=== PATIENT | female | born 1960 | race Caucasian/White ===

== ENCOUNTER 2019-06-13 18:27 | Emergency (ER) | payer MEDICARE ==
[~2019-06-13] VITALS: Ht 170.2 cm; Wt 52.3 kg
[2019-06-13 18:32] VITALS: Ht 170.2 cm; Wt 52.3 kg
[2019-06-13] MEDS ORDERED: KEFLEX500 MG PO (19:03)
[2019-06-13] MEDS ORDERED: OMEPRAZOLE20 M1 PO (19:04)
[2019-06-13] MEDS ORDERED: CYCLOBENZAPRINE10 MG PO (19:04)
[2019-06-13] MEDS ORDERED: FUROSEMIDE40 MG PO (19:04)
[2019-06-13] MEDS ORDERED: K-TAB10 MEQ (19:05)
[2019-06-13] MEDS ORDERED: SPIRIVA18 MCG INH (19:06)
[2019-06-13] MEDS ORDERED: COLACE100 MG PO (19:06)
[2019-06-13 19:07] LABS: BASOPHILS 0.2 % (0-2); EOSINOPHILS 0.6 % (0-7); HEMATOCRIT 38.9 % (36.0-48.0); HEMOGLOBIN 11.7 g/dL (12-16); IMMATURE GRANULOCYTES 0.3 % (0-5); LYMPHOCYTES 8.5 % (15-50); MCH 26.2 pg (26.0-34.0); MCHC 30.1 g/dL (31.0-37.0); MEAN PLATELET VOLUME 9.3 fL (7.4-10.4); MONOCYTES 9.7 % (2-11); NEUTROPHILS 80.7 % (40-80); PLATELET COUNT 234 10x3/uL (130-400); RBC 4.47 10x6/uL (4.00-5.40); RDW 16.2 % (11.5-14.5); WBC 11.3 10x3/uL (4.8-10.8)
[2019-06-13] MEDS ORDERED: HYDROCODON-ACE1 EA10 PO (19:07)
[2019-06-13 19:14] LABS: INR 1.18 (0.85-1.17); PROTIME 14.5 SECONDS (11.6-15.0)
[2019-06-13 19:15] LABS: APTT 37.8 SECONDS (22.8-39.4)
[2019-06-13 19:37] LABS: ALBUMIN 2.5 g/dL (3.4-5.0); ALKALINE PHOSPHATASE 94 U/L (46-116); ALT (SGPT) 26 U/L (10-68); BILIRUBIN - TOTAL 0.25 mg/dL (0.2-1.3); CALC OSMOLALITY 264 mosm/kg (275-300); CALCIUM 7.8 mg/dL (8.5-10.1); CHLORIDE - SERUM 94 mmol/L (98-107); CKMB 2.5 U/L (0.0-3.6); CREATINE KINASE 56 UL (21-215); CREATININE - SERUM 0.3 mg/dL (0.6-1.3); GLUCOSE 107 mg/dL (74-106); POTASSIUM - SERUM 4.1 mmol/L (3.5-5.1); PRO BNP 4919 pg/mL (0-125); PROTEIN - SERUM 5.5 g/dL (6.4-8.2); SODIUM 132 mmol/L (136-145); UREA NITROGEN 13 mg/dL (7-18); eGFR NON AFRICAN AMERICAN > 90 mL/min (90-120)
[2019-06-13 19:39] LABS: CARBON DIOXIDE 41.9 mmol/L (21.0-32.0); TROPONIN-I < 0.017 ng/mL (0.000-0.060)
[2019-06-13 22:58] VITALS: BP 121/64
== END 2019-06-13 22:58 | disposition other institution (70) ==
LOC: D.ER 18:27
PROVIDERS: Emergency Medicine
DX: I50.9 Heart failure, unspecified (principal); J44.1 Chronic obstructive pulmonary disease with (acute) exacerbation; S72.001A Fracture of unspecified part of neck of right femur, initial encounter for closed fracture